=== PATIENT | female | born 1960 | race Caucasian/White ===

== ENCOUNTER 2017-01-02 21:00 | Emergency (ER) | payer MEDICARE, OTHER ==
[~2017-01-02 21:00] MED LIST: ASPIRIN CHEWABL81 MG PO; BRILINTA 90 MG90 MG PO; FLEXERIL 10 MG10 MG PO; LIPITOR TAB 2020 MG PO; LOPRESSOR 25 MG25 MG PO; NICOTINE PATCH1 EAC1 TOP; NITROSTAT 0.40.4 MG SL; PERCOCET 7.5-31 EACH PO; PREVACID15 MG PO; PRINIVIL5 MG PO; XANAX0.5 MG PO
[2017-01-02 22:07] LABS: RED BLOOD COUNT 3.52 M/UL (4.00-5.10); WHITE BLOOD COUNT 8.5 K/UL (4.5-11.0)
== END 2017-01-03 10:15 | disposition short-term general hospital (02) ==
LOC: ER1 21:00
PROVIDERS: Emergency Medicine
DX: G03.9 Meningitis, unspecified (principal); A41.9 Sepsis, unspecified organism; N17.9 Acute kidney failure, unspecified; B19.20 Unspecified viral hepatitis C without hepatic coma; Z88.5 Allergy status to narcotic agent; Z79.82 Long term (current) use of aspirin; Z79.899 Other long term (current) drug therapy
CPT/HCPCS: 36415; 51701; 70450; 71010; 80053; 80307; 81001; 82140; 82550; 82553; 82962; 83605; 83874; 84484; 85025; 85610; 85730; 87040; 87077; 87086; 87186; 93005; 96361; 96374; 96375; 99285; J0133; J0692; J1720; J2310; J2405; J3370; J7050